=== PATIENT | male | born 1985 | race Caucasian/White ===

== ENCOUNTER 2018-01-29 13:03 | Emergency (ER) | payer OTHER ==
[2018-01-29 13:21] VITALS: BP 125/78
[2018-01-29] MEDS ORDERED: DEXAMETHASONE 10 MG/ML VIAL PO STA (15:17)
--- NOTE | 2018-01-29 15:18 | ED Physician Documentation ---
History of Present Illness - Stated complaint Stated Complaint: BLEEDING IN LT EAR/PRESSURER/RINGING - Chief complaint Chief Complaint: Heent - History obtained from History obtained from: Patient, Family - History of Present Illness Timing: How many days ago (3) Pain level max: 3 Pain level now: 2 - Additonal information Additional information: Patient is a 33-year-old male who presents to the emergency department complaining of nasal congestion, mild sore throat and pressure/bleeding from the left ear for the past 3 days. He denies any fevers. Has not taken anything for this. Nothing makes it better or worse Review of Systems Constitutional: denies: Fever, Chills Ears: denies: Ear pain Nose: reports: Rhinorrhea / runny nose, Congestion Respiratory: denies: Cough GI: denies: Vomiting Skin: denies: Rash PD PAST MEDICAL HISTORY - Past Medical History Past Medical History: No - Past Surgical History Past Surgical History: No - Present Medications Home Medications: Ambulatory Orders Medication Instructions Recorded Confirmed Azithromycin [Zithromax] 0 mg PO DAILY #6 tablet 01/29/18 Cetirizine HCl/Pseudoephedrine 1 each PO BID PRN #30 tab.er.12h 01/29/18 [Zyrtec-D Tablet] - Allergies Allergies/Adverse Reactions: Allergies Allergy/AdvReac Type Severity Reaction Status Date / Time No Known Drug Allergies Allergy Verified 01/29/18 13:21 - Living Situation Living Situation: reports: With family Living Arrangement: reports: At home - Social History Does the pt have substance abuse?: No - Family History Family history: reports: Non contributory - Immunizations Immunizations are current?: Yes PD ED PE NORMAL - Vitals Vital signs reviewed: Yes - General General: Alert and oriented X 3, No acute distress - HEENT HEENT: PERRL, Pharynx benign, Other (Right tympanic membrane is normal. Left tympanic membrane is erythematous, dull, bulging with loss of landmarks. Small perforation and bloody drainage from the inferior posterior aspect of the tympanic membrane. Canal is normal.) - Neck Neck: Supple, no meningeal sign, No adenopathy - Cardiac Cardiac: RRR - Respiratory Respiratory: No respiratory distress, Clear bilaterally - Derm Derm: Warm and dry - Neuro Neuro: Alert and oriented X 3 - Psych Psych: Normal mood, Normal affect Results - Vitals Vitals: Vital Signs - 24 hr 01/29/18 13:17 Temperature 36.6 C Heart Rate 63 Respiratory 18 Rate Blood Pressure 125/78 O2 Saturation 97 Oxygen O2 Source Room air PD MEDICAL DECISION MAKING - ED course Complexity details: considered differential, d/w patient ED course: Patient is a 33-year-old male who presents to the emergency department what appears to be a left acute otitis media with perforation. Will place on antibiotics for this. He also appears to have a viral upper respiratory infection and will treat with decongestants at home. He is well-appearing, nontoxic. Afebrile. Patient counseled regarding signs and symptoms for which I believe and urgent re-evaluation would be necessary. Patient with good understanding of and agreement to plan and is comfortable going home at this time This document was made in part using voice recognition software. While efforts are made to proofread this document, sound alike and grammatical errors may occur. - Sepsis Event Vital Signs: Vital Signs - 24 hr 01/29/18 13:17 Temperature 36.6 C Heart Rate 63 Respiratory 18 Rate Blood Pressure 125/78 O2 Saturation 97 Oxygen O2 Source Room air Departure - Departure Disposition: 01 Home, Self Care Clinical Impression: URI (upper respiratory infection) Qualifiers: URI type: unspecified URI Qualified Code(s): J06.9 - Acute upper respiratory infection, unspecified Otitis media Qualifiers: Otitis media type: suppurative Chronicity: acute Laterality: left Recurrence: not specified as recurrent Spontaneous tympanic membrane rupture: with spontaneous rupture Qualified Code(s): H66.012 - Acute suppurative otitis media with spontaneous rupture of ear drum, left ear Condition: Good Instructions: ED Otitis Media Acute Adult Follow-Up: your,doctor in 1 week [Other] Prescriptions: Azithromycin [Zithromax] 0 mg PO DAILY #6 tablet Cetirizine HCl/Pseudoephedrine [Zyrtec-D Tablet] 1 each PO BID PRN #30 tab.er.12h PRN Reason: Nasal Congestion Comments: Take all antibiotics until gone. Return if you worsen. Discharge Date/Time: 01/29/18 15:28
== END 2018-01-29 15:28 | disposition home or self-care (01) ==
LOC: ED 13:03
DX: H66.012 Acute suppurative otitis media with spontaneous rupture of ear drum, left ear (principal); J06.9 Acute upper respiratory infection, unspecified
CPT/HCPCS: 99283

== ENCOUNTER 2019-02-16 08:56 | Emergency (ER) | payer OTHER ==
--- NOTE | 2019-02-16 09:21 | ED Physician Documentation ---
History of Present Illness - Stated complaint Stated Complaint: SORE THROAT/COUGH - Chief complaint Chief Complaint: Heent - History obtained from History obtained from: Patient - Additonal information Additional information: Patient is a previously healthy 34-year-old male presenting with nearly 1 week of URI symptoms, specifically nasal congestion with purulent rhinorrhea, sinus pain, sore throat with hoarse voice, and productive cough. Patient also does note fever as measured by thermometer several days ago, which subsided. Patient denies abdominal pain, vomiting, urinary changes, or stool changes. [place] and given cough drops as well as Sudafed, although no relief with these therapies. No other improving or worsening factors noted. Review of Systems Constitutional: reports: Fever Nose: reports: Rhinorrhea / runny nose, Congestion, Sinus pressure / pain Throat: reports: Sore throat Respiratory: reports: Cough GI: denies: Abdominal Pain, Vomiting, Diarrhea : denies: Dysuria PD PAST MEDICAL HISTORY - Past Medical History Past Medical History: No - Past Surgical History Past Surgical History: No - Present Medications Home Medications: Ambulatory Orders Medication Instructions Recorded Confirmed Azithromycin 250 mg PO DAILY 5 Days #6 tab 02/16/19 - Allergies Allergies/Adverse Reactions: Allergies Allergy/AdvReac Type Severity Reaction Status Date / Time No Known Drug Allergies Allergy Verified 02/16/19 09:09 - Social History Does the pt have substance abuse?: No - Immunizations Immunizations are current?: Yes PD ED PE NORMAL - Vitals Vital signs reviewed: Yes - General General: Alert and oriented X 3, No acute distress, Well developed/nourished - HEENT HEENT: Atraumatic, Moist mucous membranes, Pharynx benign, Other (Mild frontal sinus pressure with palpation) - Neck Neck: Supple, no meningeal sign - Cardiac Cardiac: RRR, No murmur - Respiratory Respiratory: No respiratory distress, Clear bilaterally - Abdomen Abdomen: Soft, Non tender, Non distended - Derm Derm: Normal color, Warm and dry, No rash - Extremities Extremities: No deformity, No tenderness to palpate - Neuro Neuro: Alert and oriented X 3, No motor deficit, No sensory deficit - Psych Psych: Normal mood, Normal affect Results - Vitals Vitals: Vital Signs - 24 hr 02/16/19 09:06 Temperature 36.6 C Heart Rate 77 Respiratory 14 Rate Blood Pressure 126/66 O2 Saturation 96 Oxygen O2 Source Room air - Labs Labs: Laboratory Tests 02/16/19 09:42 Group A Strep Rapid Negative PD MEDICAL DECISION MAKING - ED course Complexity details: reviewed results, re-evaluated patient, considered differential, d/w patient ED course: Patient presenting with symptoms concerning for viral URI, sinusitis, pharyngitis, tonsillitis, and pneumonia. Physical exam indicates that patient is well-hydrated and do not find evidence of sepsis or other systemic illness. Rapid strep test obtained, although do not have significant pharyngeal changes. Rapid strep returned negative. Also obtain chest x-ray which did indicate likely pneumonia. At this time, feel most appropriate to treat and patient agreeable to this plan. Patient received IM Rocephin in the ED and discharged with prescription for azithromycin. Discussed other supportive cares, return precautions, appropriate follow-up. Patient voiced understanding and is comfortable with discharge plan. Departure - Departure Disposition: 01 Home, Self Care Clinical Impression: Pneumonia Qualifiers: Pneumonia type: due to unspecified organism Laterality: unspecified laterality Lung location: unspecified part of lung Qualified Code(s): J18.9 - Pneumonia, unspecified organism Condition: Good Instructions: ED Pneumonia Adult Follow-Up: your,doctor [Other] - Within 3 Days Prescriptions: Azithromycin 250 mg PO DAILY 5 Days #6 tab Comments: Please take antibiotics as prescribed. Recommend taking antibiotics with a small amount of food to avoid upset stomach. May use ibuprofen/Tylenol as needed for fever, pain, and inflammation control. Follow-up with primary care physician in next 2 to 3 days and return to ED sooner if you experience worsening symptoms or other concerns.
--- NOTE | 2019-02-16 10:12 | XRAY Report ---
Reason: cough Procedure Date: 02/16/2019 Accession Number: [id number] / [id number] Procedure: XR - Chest 2 View X-Ray CPT Code: 24887 FULL RESULT: EXAM: CHEST RADIOGRAPHY EXAM DATE: 02/16/2019 09:54 AM. CLINICAL HISTORY: Cough. COMPARISON: None. TECHNIQUE: 2 views. FINDINGS: Lungs/Pleura: Very mild increased opacity on the lateral view at the anterior lower lung, projecting over the heart, suggests mild atelectasis or infiltrate, possibly left upper lobe lingular segment. No dense consolidation. No pleural effusion. No pneumothorax. Mediastinum: Heart and mediastinal contours are unremarkable. Other: None. IMPRESSION: Probable mild anterior lower lung atelectasis or infiltrate, possibly lingular segment upper lobe. RADIA
[2019-02-16] MEDS ORDERED: LIDOCAINE 1% 2 ML VIAL MC ONE (10:21)
[2019-02-16] MEDS ORDERED: cefTRIAXone 1 GM VIAL IM STA (10:21)
[2019-02-16 11:05] VITALS: BP 123/74
== END 2019-02-16 11:05 | disposition home or self-care (01) ==
LOC: ED 08:56
DX: J18.9 Pneumonia, unspecified organism (principal)
CPT/HCPCS: 71046; 87070; 87430; 96372; 99283; 99284

== ENCOUNTER 2020-12-02 12:52 | Outpatient (CLI) | payer OTHER ==
[2020-12-02 15:20] VITALS: BP 147/102
--- NOTE | 2020-12-02 15:20 | SLEEP CARE CONSULTATION ---
Information from patient questionnaire entered by Malissa Robertson. I have reviewed and concur with the information entered by Malissa Robertson. This document represents the service I personally performed and the decisions made by me, Katie Terry MD, [facility]. History of Present Illness Service Date and Time: 12/02/2020 1252 Reason for Visit: New patient Chief Complaint: reports: Unrefreshed sleep, Snoring, Excessive daytime sleepiness, Observed pauses in breathing, Fatigue, Frequent awakenings at night Date of Onset: 5 years Usual bedtime: 9-11 Time it takes to fall asleep: 30 minutes - 1 hour Snores at night: Yes Observed to quit breathing while asleep: Yes Sleeps alone due to snoring: Yes Number of times waking at night: 1-3 Reasons for waking at night: reports: Snoring, Gasping for air Toss, Turn, or Twitch while sleeping: Yes Recalls having dreams: No Usually gets out of bed at: 0550 - 0615 Feels refreshed in the morning: No Morning headache: No Sleepy or fatigued during the day: Yes Ever fallen asleep while driving: Yes Takes day naps: Yes Dreams during day naps: No Prior sleep studies: No Additional HPI information: I had the pleasure of seeing Mr. Tovar today regarding the possibility of him having a sleep disorder. As you know, he is a 35 year old gentleman who complains of frequent awakenings, loud snore, observed apneas, unrefreshed sleep, excessive daytime sleepiness, and persistent fatigue. The patient tells me that he normally goes to bed around 9 - 11 pm, and it takes him approximately 30 - 60 minutes to fall asleep. He has been told that he snores loudly and irregularly at night. He has also been observed to stop breathing in his sleep. His has to sleep in a separate room. He can recall waking up on the average of 1 -3 times during the night. Most of the time he wakes up because of his own snoring, choking, and having to gasp for air. There is a lot of tossing and turning in his sleep. No somniloquy (sleep talking) or somnambulism (sleep walking). Generally there is no recollection of dreams. In the morning he usually gets up out of the bed around 6 a.m. not feeling refreshed nor rested. He usually does not have a morning headache. During the day he complains of feeling sleepy and fatigued. His score on Keldron Sleepiness Scale is 19 out of 24. He has fallen asleep while driving and has gone out of the oleg. He usually does not take naps during the day. He reports having impaired concentration during the day. - Parasomnia Symptoms Ever been unable to move upon waking from sleep: Yes Ever felt weak in the knees when startled or emotional: No Bothered by creepy, crawly, restless sensations in legs: Yes Problems with memory or concentration: Yes Subjective Initial Keldron Sleepiness Scale score: 19 (in 2020) Past Medical History Past Medical History: reports: Asthma Social History The patient's occupation is a [employer]. Patient is and lives in [place]. Have you smoked in the past 12 months: Yes Cigarettes per day (20/pack): 5 Years of smokin Smoking Pack Years: 3.2 Alcohol use: Yes Alcohol amount and frequency: 1-3 a couple of days a week Caffeine use: Yes Caffeine amount and frequency: 1-2 every day Family History Family history of sleep disordered breathing: Yes Family Hx Sleep Apnea: Mother: Snoring, Father: Snoring, Sleep apnea - Untreated Allergies and Home Medications Drug allergies reviewed: Yes Home medication list reviewed: Yes Review of Systems Cardiovascular: reports: high blood pressure Respiratory: reports: shortness of breath, wheeze, sputum production Gastrointestinal: denies: heartburn, difficulty swallowing, nausea, vomitting, diarrhea, abdominal pain, other Urinary: denies: incontinence, frequency, urgency, impotence, other Neurological: denies: headaches, seizure, head trauma, disorientation, speech dysfunction, gait or balance problems, fainting or unconsciousness, other Psychiatric: denies: Attention Deficit Hyperactivity, anxiety, depression, mood disorder, claustrophobia, other Ear/Nose/Throat: reports: nasal congestion, sinus problems, dry mouth/throat, wisdom teeth removed Endocrine: denies: thyroid disease, history of goiter, sluggishness, too hot or cold, excessive thirst, increased appetite, increased urination, unexplained weakness, other Musculoskeletal: denies: joint pain, neck pain, back pain, joint swelling, muscle pain or cramping, mobility problems, other Immunologic: reports: sneezing (runny nose) Physical Exam Vital signs obtained and entered by: Dr. Terry Blood Pressure: 147/102 Cuff size: regular Heart Rate: 56 O2 Saturation: 98 Height: 6 ft Weight: 180 lb Body Mass Index: 24.4 BMI Classification: Healthy weight Neck circumference: 15.5 Mood/affect: Normal HEENT: No craniofacial malformation Nostrils: patent to airflow Turbinates: normal Septum: midline Mouth and throat: narrow oropharynx Soft palate: long Hard palate: normal Uvula: normal Uvula visualization: 50% Mallampati Class II Tongue: normal in size Tonsils: small Chin and jaw: normal size and position Neck: normal w/o lymphadenopathy or thyromegaly Impression and Plan IMPRESSION: 1. Obstructive Sleep Apnea-Hypopnea Syndrome, as suggested by history of loud and irregular snoring, observed cessation of breath while asleep, frequent awakenings during the night, nocturnal choking, unrefreshed sleep, cognitive impairment, and daytime hypersomnolence. Narrow oropharynx is a common predisposing factor for obstructive sleep apnea-hypopnea syndrome. Untreated obstructive sleep apnea can also cause hypertension. A home sleep apnea test (HSAT) will be ordered. Plan: 1. Schedule a home sleep apnea test (HSAT). 2. Avoid long distance driving or when feeling sleepy. 3. Avoid alcohol, sedative and muscle relaxant around bedtime. 4. Return for follow up after the test. Visit Type: In Office Time Spent with Patient (minutes): 15 Provider Statement: I spent 100% of the Face to Face Visit with the patient with greater than 50% spent counseling the patient and coordination of care.
== END 2020-12-02 12:53 | disposition home or self-care (01) ==
LOC: SC 12:52
PROVIDERS: ATTEND Internal Medicine Pulmonary Disease
DX: R06.83 Snoring (principal); R06.81 Apnea, not elsewhere classified; G47.8 Other sleep disorders; R41.89 Other symptoms and signs involving cognitive functions and awareness; G47.10 Hypersomnia, unspecified; F17.200 Nicotine dependence, unspecified, uncomplicated
CPT/HCPCS: 99202; 99212

== ENCOUNTER 2020-12-05 12:55 | Outpatient (CLI) | payer OTHER | END 2020-12-05 12:56 | disposition home or self-care (01) | LOC: SC 12:55 | PROVIDERS: ATTEND Internal Medicine Pulmonary Disease | DX: G47.33 Obstructive sleep apnea (adult) (pediatric) (principal) | CPT/HCPCS: 95806 ==

== ENCOUNTER 2020-12-23 10:52 | Outpatient (CLI) | payer OTHER ==
--- NOTE | 2020-12-23 13:15 | SLEEP CARE CONSULTATION ---
Information from patient questionnaire entered by Malissa Robertson. I have reviewed and concur with the information entered by Malissa Robertson. This document represents the service I personally performed and the decisions made by me, Katie Terry MD, [facility]. History of Present Illness Service Date and Time: 12/23/2020 1052 Initial Chambers Sleepiness Scale score: 19 (in 2020) Current Chambers Sleepiness Scale score: 20 Additional HPI information: HPI: Mr. Tovar returned for follow up of the home sleep apnea test (HSAT) he had on 12/06/2020. The test shows mild obstructive sleep apnea-hypopnea with an AHI of 12.5 and kadeem oxygen saturation of 80%. The respiratory events occurred almost exclusively during supine sleep. The patient was informed of these findings. I explained to him the pathophysiology behind obstructive sleep apnea. We then spent quite a bit of time discussing different treatment options. For mild obstructive sleep apnea, surgery and oral appliance are alternatives to nasal CPAP therapy but in moderate or severe cases, nasal CPAP is the most effective and reliable treatment. Weight loss in an obese individual is strongly recommended. After some discussion, he opted to go with the nasal CPAP therapy. I explained to him how CPAP machine works and what to expect when using the machine. He is encouraged to use CPAP every night especially in the first 2 to 3 nights in order to get used to it. He should call his CPAP supplier or me to discuss any mechanical problem that may occur. If he snores or feels like he is not getting enough air from the machine, he should notify me and I will increase the pressure. Sleep Study - Results Type of Sleep Study: Home sleep study Prior sleep studies: No Allergies and Home Medications Drug allergies reviewed: Yes Home medication list reviewed: Yes Review of Systems Review of systems same as previous: Yes Physical Exam Height: 6 ft Weight: 180 lb Body Mass Index: 24.4 BMI Classification: Healthy weight Impression and Plan IMPRESSION: 1. Obstructive Sleep Apnea-Hypopnea Syndrome, mild, associated with mild hypoxemia. Possibly, this is the cause of the patients symptoms of unrefreshed sleep, and excessive daytime sleepiness. As mentioned above, the patient will be started on autoCPAP set at 5 - [id number]. Depending on his response and compliance he may be brought back for an overnight CPAP titration study. PLAN: 1. Prescription made for an autoCPAP, heated humidifier, and related supplies. 2. Return in one month for follow up. I will assess his response and compliance at that time. Visit Type: In Office Time Spent with Patient (minutes): 12 Provider Statement: I spent 100% of the Face to Face Visit with the patient with greater than 50% spent counseling the patient and coordination of care.
== END 2020-12-23 10:53 | disposition home or self-care (01) ==
LOC: SC 10:52
PROVIDERS: ATTEND Internal Medicine Pulmonary Disease
DX: G47.33 Obstructive sleep apnea (adult) (pediatric) (principal)
CPT/HCPCS: 99212

== ENCOUNTER 2021-01-21 20:05 | Emergency (ER) | payer OTHER ==
--- NOTE | 2021-01-21 22:41 | ED Physician Documentation ---
History of Present Illness - Stated complaint Stated Complaint: RT EAR BLEED/PX - Chief complaint Chief Complaint: Heent - History obtained from History obtained from: Patient - Additonal information Additional information: 36-year-old man, previously healthy presents with right ear spontaneous bleeding starting today. He states that he felt a tickling in his ear and inserted his finger to see what was going on and blood came out. He then probed with multiple Q-tips and was able to fish out chunks of blood and dried clots. He states that his hearing feels a little bit different on one side versus the other. Pain is mild at present and localized to the ear without radiation. denies inserting anything else in the ear. Review of Systems Constitutional: denies: Fever, Chills Ears: reports: Ear pain, Other (change in hearing. bloody discharge) PD PAST MEDICAL HISTORY - Past Surgical History Past Surgical History: No - Present Medications Home Medications: Ambulatory Orders Medication Instructions Recorded Confirmed Ciproflox/Dexameth Otic Drops 4 drops OT BID #7.5 ml 01/21/21 [Ciprodex Otic Drops] - Allergies Allergies/Adverse Reactions: Allergies Allergy/AdvReac Type Severity Reaction Status Date / Time No Known Drug Allergies Allergy Verified 01/21/21 20:14 - Social History Does the pt smoke?: No Smoking Status: Never smoker Does the pt drink ETOH?: Yes Does the pt have substance abuse?: No - Immunizations Immunizations are current?: Yes PD ED PE NORMAL - Vitals Vital signs reviewed: Yes - General General: Alert and oriented X 3, No acute distress, Well developed/nourished - HEENT HEENT: Atraumatic, PERRL, EOMI, Other (L TM normal. R TM perforated with multiple abrasions to ear canal. ) Results - Vitals Vitals: Vital Signs - 24 hr 01/21/21 20:15 Temperature 36.8 C Heart Rate 77 Respiratory 18 Rate Blood Pressure 154/82 H O2 Saturation 98 Oxygen O2 Source Room air PD MEDICAL DECISION MAKING - ED course ED course: 36-year-old man presented with right TM rupture and bleeding from multiple abrasions. Antibiotic eardrops prescribed. I advised him not to put anything else in his ear until he sees an ear nose and throat doctor and in fact did not put anything else in his ear at all. strict return precautions given. Departure - Departure Disposition: 01 Home, Self Care Clinical Impression: Perforated tympanic membrane, Abrasion of ear canal Condition: Good Instructions: Eardrum Rupture Follow-Up: LILIANA DEMPSEY MD [Physician No Access] - Prescriptions: Ciproflox/Dexameth Otic Drops [Ciprodex Otic Drops] 4 drops OT BID #7.5 ml Comments: You were seen in the emergency department for rupture of your eardrum and scratches on the ear canal. Follow-up with ear nose and throat. Return to the emergency department if you have any new or worsening symptoms or other concerns. Use your antibiotic eardrops as prescribed.
[2021-01-21 22:53] VITALS: BP 142/79
== END 2021-01-21 22:51 | disposition home or self-care (01) ==
LOC: ED 20:05
DX: H72.91 Unspecified perforation of tympanic membrane, right ear (principal); S00.411A Abrasion of right ear, initial encounter; X58.XXXA Exposure to other specified factors, initial encounter
CPT/HCPCS: 99282; 99283

== ENCOUNTER 2021-02-27 08:53 | Outpatient (CLI) | payer OTHER ==
--- NOTE | 2021-02-27 09:24 | SLEEP CARE CONSULTATION ---
Information from patient questionnaire entered by Diana Thomas. I have reviewed and concur with the information entered by Diana Thomas. This document represents the service I personally performed and the decisions made by , Krystal Saxena ARNP. History of Present Illness Service Date and Time: 02/27/2021 0853 Previous diagnosis: Mild, Obstructive Sleep Apnea-Hypopnea Syndrome AHI: 12.5 (in 2020) Reason for follow up: first compliance Equipment type: CPAP Equipment obtained from: Other ([facility]; got initial supplies) Mask style: Full face Backup mask available: No (will keep old mask when replaced) Last cushion change: last weekend Prior sleep studies: Yes Year and Where: 2020 - [facility] Type of Sleep Study: Home sleep study HPI additional information: JOSE WANG was diagnosed to have mild, AHI 12.5, obstructive sleep apnea- hypopnea syndrome and returned today for CPAP therapy first compliance follow- up. CPAP Compliance Data - Data Reviewed with Patient Average duration of nightly device use: 4 hr 19 min Compliance rate %: 10 Current pressure setting (cmH2O): 5-15 Humidity setting: auto Heated hose setting: auto Average residual AHI: 1.7 Subjective Missed days of use due to: reports: travel (in [place] and did not take) Patient concerns: reports: mask discomfort, air blowing in eyes, dry mouth, nose, throat, other (snore while using device). denies: aerophagia, mask leak noise, condensation in mask/hose, nasal congestion, epistaxis Observed to snore while using device: Yes (sometimes) Current pressure setting perceived as: comfortable On therapy, patient: reports: sleeping better, awakening more refreshed, being more awake and alert during the day, more rested overall. denies: drowsiness while driving Initial [place] Sleepiness Scale score: 19 (in 2020) Current [place] Sleepiness Scale score: 14 Allergies and Home Medications Home medication list reviewed: Yes (no changes) Review of Systems Review of systems same as previous: Yes (no changes) Physical Exam Heart Rate: 65 O2 Saturation: 98 Height: 5 ft 11 in Weight: 185 lb Body Mass Index: 25.7 BMI Classification: Overweight Impression and Plan 1. Obstructive Sleep Apnea-Hypopnea Syndrome, mild, with poor treatment compliance and good apnea control. On CPAP therapy, the patient has better sleep quality and is more rested overall. Patient went to [place] for 2 weeks and did not take his machine with him which did affect his compliance. He has also had difficulties with a full face mask because it is just so much on his head and he has difficulty with it leaking when he turns on his side. Patient would like to try a different style mask as well as something with less headgear that would be more comfortable. I showed him some examples of nasal masks and he felt that Brevida by [employer] would work for him. I will write for a mask refitting so that he might try this style of mask. I did inform him of the possible cost with changing out the headgear sooner than the usual 6-month replacement and he voiced understanding. The patients pressure will be changed to autoCPAP 7-10 cmH20 to reflect pressure used and to reduce occasional snoring. Patient advised to contact me if pressure change is uncomfortable so that it can be adjusted. Goals for apnea control discussed. Compliance guidelines reviewed for insurance coverage. Patient was counseled on the difference between meeting compliance and optimal use of CPAP. Optimal use of CPAP is use of CPAP with all sleep to obtain maximum benefit of treatment. Patient is encouraged to use CPAP with all sleep. I will follow up with him to recheck compliance in 1-2 months. Patient's apnea severity and rationale for treatment to reduce apnea, improve sleep quality and reduce cardiovascular and cerebrovascular events was reviewed. * Mask refitting for possible nasal mask Brevida * Change auto CPAP pressure to 7-10 cmH2O * Notify me if snoring with mask or feeling that the pressure is too much or too little * Attempt to lose weight * Call this office if any problems using CPAP * Return for follow up in 1-2 month, or sooner if concerns arise Counseling Topics: Spare mask, Weight loss health impact Visit Type: In Office Time Spent with Patient (minutes): 23 Provider Statement: I spent 100% of the Face to Face Visit with the patient with greater than 50% spent counseling the patient and coordination of care.
== END 2021-02-27 08:54 | disposition home or self-care (01) ==
LOC: SC 08:53
PROVIDERS: ATTEND Nurse Practitioner Family
DX: G47.33 Obstructive sleep apnea (adult) (pediatric) (principal); E66.3 Overweight; Z68.25 Body mass index [BMI] 25.0-25.9, adult
CPT/HCPCS: 99212; 99213

== ENCOUNTER 2021-04-01 09:23 | Outpatient (CLI) | payer OTHER ==
--- NOTE | 2021-04-01 10:05 | SLEEP CARE CONSULTATION ---
Information from patient questionnaire entered by Diana Thomas. I have reviewed and concur with the information entered by Diana Thomas. This document represents the service I personally performed and the decisions made by , Krystal Saxena ARNP. History of Present Illness Service Date and Time: 04/01/2021 09 Previous diagnosis: Mild, Obstructive Sleep Apnea-Hypopnea Syndrome AHI: 12.5 (in 2020) Reason for follow up: one month (with pressure change) Equipment type: CPAP Equipment obtained from: Other ([facility]; waiting to be able to change to nasal mask in 2 days) Mask style: Full face Backup mask available: No (will keep old mask when replaced) Last cushion change: 1 month Prior sleep studies: Yes Year and Where: 2020 - [facility] Type of Sleep Study: Home sleep study HPI additional information: JOES WANG was diagnosed to have mild, AHI 12.5, obstructive sleep apnea- hypopnea syndrome and returned today for CPAP therapy one month with pressure change follow-up. CPAP Compliance Data - Data Reviewed with Patient Current pressure setting (cmH2O): 7-10 Humidity settin Subjective Missed days of use due to: reports: mask issues Patient concerns: reports: mask discomfort, air blowing in eyes, mask leak noise, dry mouth, nose, throat, other (snore while using device) Observed to snore while using device: Yes Current pressure setting perceived as: comfortable On therapy, patient: reports: other (not able to use due to mask issues) Initial [place] Sleepiness Scale score: 19 (in 2020) Current [place] Sleepiness Scale score: 17 Allergies and Home Medications Home medication list reviewed: Yes (no changes) Review of Systems Review of systems same as previous: Yes (no changes) Physical Exam Heart Rate: 69 O2 Saturation: 97 Height: 5 ft 11 in Weight: 193 lb Body Mass Index: 26.9 BMI Classification: Overweight Impression and Plan 1. Obstructive Sleep Apnea-Hypopnea Syndrome, mild, with very poor treatment compliance and unknown apnea control. Patient has been having difficulty because of his full facemask. He states that it is so irritating with air blowing in his eyes and leak noises that he has just not been using it. He talked to [facility] and he is eligible for the new mask refitting on the of this month (March). He will call them later today to see if he can set up that refitting to try a nasal mask. I advised him to call us after he gets his new mask so we can set up a follow-up in a month so that we can recheck his compliance at that time. He voiced understanding and agreement with this plan of care. Patient's apnea severity and rationale for treatment to reduce apnea, improve sleep quality and reduce cardiovascular and cerebrovascular events was reviewed. * Continue auto CPAP pressure at 7-10 cmH2O * get mask refitting completed * Notify me if snoring with mask or feeling that the pressure is too much or too little * Attempt to lose weight * Call this office if any problems using CPAP * Return for follow up in 1-2 months, or sooner if concerns arise Counseling Topics: Spare mask, Weight loss health impact Visit Type: In Office Time Spent with Patient (minutes): 12 Provider Statement: I spent 100% of the Face to Face Visit with the patient with greater than 50% spent counseling the patient and coordination of care.
== END 2021-04-01 09:24 | disposition home or self-care (01) ==
LOC: SC 09:23
PROVIDERS: ATTEND Nurse Practitioner Family
DX: G47.33 Obstructive sleep apnea (adult) (pediatric) (principal)
CPT/HCPCS: 99212

== ENCOUNTER 2021-05-21 09:01 | Outpatient (CLI) | payer OTHER ==
--- NOTE | 2021-05-21 09:26 | SLEEP CARE CONSULTATION ---
Information from patient questionnaire entered by Ester Noe. I have reviewed and concur with the information entered by Ester Noe. This document represents the service I personally performed and the decisions made by me, Krystal Saxena ARNP. History of Present Illness Service Date and Time: 05/21/2021 0901 Previous diagnosis: Mild, Obstructive Sleep Apnea-Hypopnea Syndrome AHI: 12.5 (in 2020) Reason for follow up: other (2 month) Equipment type: CPAP Equipment obtained from: Other ([facility]; getting supplies as needed) Mask style: Nasal pillows Mask brand: [employer]med Backup mask available: Yes (old mask) Last cushion change: last week Prior sleep studies: Yes Year and Where: 2020 - [facility] Type of Sleep Study: Home sleep study HPI additional information: JOSE WANG was diagnosed to have mild, AHI 12.5, obstructive sleep apnea- hypopnea syndrome and returned today for CPAP therapy two month follow-up. Sleep Study - Results Type of Sleep Study: Home sleep study Prior sleep studies: Yes Year and Where: 2020 - [facility] CPAP Compliance Data - Data Reviewed with Patient Average duration of nightly device use: 4 hours 34 minutes Compliance rate %: 47 Current pressure setting (cmH2O): 7-10 Average residual AHI: 0.9 Central apnea: .4 Obstructive apnea: .4 Hypopnea: .1 Subjective Missed days of use due to: reports: mask issues (changed to nasal pillows, bett er) Patient concerns: reports: dry mouth, nose, throat (dry throat, occasionally; using chin strap). denies: aerophagia, mask discomfort, air blowing in eyes, mask leak noise, condensation in mask/hose, nasal congestion, epistaxis, other Observed to snore while using device: No Current pressure setting perceived as: comfortable On therapy, patient: reports: sleeping better, awakening more refreshed, being more awake and alert during the day, more rested overall. denies: drowsiness while driving Initial [place] Sleepiness Scale score: 19 (in 2020) Current [place] Sleepiness Scale score: 13 Allergies and Home Medications Home medication list reviewed: Yes (no changes) Review of Systems Review of systems same as previous: Yes (no changes) Physical Exam Blood Pressure: 105/64 Cuff size: wrist Heart Rate: 62 O2 Saturation: 98 Height: 5 ft 11 in Weight: 190 lb Body Mass Index: 26.4 BMI Classification: Overweight Impression and Plan 1. Obstructive Sleep Apnea-Hypopnea Syndrome, mild, with poor treatment compliance and excellent apnea control. On CPAP therapy, the patient has better sleep quality and is more rested overall. Patient states the new nasal pillows mask is much more comfortable and he has no leaking into his eyes. He states he has been able to wear it more often and for longer amounts of time. He has now 47% compliance. I will have him follow-up in 1 to 2 months to recheck his compliance but feel this will not be a problem. Oral dryness can be reduced by adjusting humidity setting higher or heated hose lower or by adjusting both settings. Verbal instructions given on how to change humidity and heated hose settings with rationale explaining why to change. Patient's apnea severity and rationale for treatment to reduce apnea, improve sleep quality and reduce cardiovascular and cerebrovascular events was reviewed. Patient was encouraged to lose weight for their overall health and to reduce apneas. * Continue auto CPAP pressure at 7-10 cmH2O * Notify me if snoring with mask or feeling that the pressure is too much or too little * Attempt to lose weight * Call this office if any problems using CPAP * Return for follow up in 1-2 months, or sooner if concerns arise Counseling Topics: Spare mask, Weight loss health impact Visit Type: In Office Time Spent with Patient (minutes): 17 Provider Statement: I spent 100% of the Face to Face Visit with the patient with greater than 50% spent counseling the patient and coordination of care.
[2021-05-21 09:27] VITALS: BP 105/64
== END 2021-05-21 09:02 | disposition home or self-care (01) ==
LOC: SC 09:01
PROVIDERS: ATTEND Nurse Practitioner Family
DX: G47.33 Obstructive sleep apnea (adult) (pediatric) (principal); E66.3 Overweight; Z68.26 Body mass index [BMI] 26.0-26.9, adult
CPT/HCPCS: 99212